=== PATIENT | male | born 1975 | race Caucasian/White ===

== ENCOUNTER 2018-04-19 14:36 | Emergency (ER) | payer BC, OTHER ==
[~2018-04-19] VITALS: Ht 182.9 cm; Wt 113.4 kg
[~2018-04-19 14:36] MED LIST: CYCL5TAB PO; HYDR-1179 PO
--- NOTE | 2018-04-19 15:02 | PHYS DOC ---
Past History Past Medical History: Hypertension Past Surgical History: Other (spinal surgery) Smoking: Chew Alcohol Use: None Drug Use: None Adult General Chief Complaint Chief Complaint: HAND PROBLEM HPI HPI Patient is a 43 year old male who presents with right hand small finger injury. Patient was changing a tire when the wrench broke striking his ulnar aspect of the small finger. There is pain and swelling. Increased pain with movement. No home medicines been taken. No numbness or tingling. There is a small cut. Bleeding has been controlled with pressure. Patient reports his last tetanus vaccine was greater than 5 years ago. He is right-hand dominant. Pain is moderate in intensity. This happened approximately 2 hours prior to arrival.[] Review of Systems Review of Systems Constitutional: Denies fever or chills [] Eyes: Denies change in visual acuity, redness, or eye pain [] HENT: Denies nasal congestion or sore throat [] Respiratory: Denies cough or shortness of breath [] Cardiovascular: No chest pain or palpitations[] GI: Denies abdominal pain, nausea, vomiting, bloody stools or diarrhea [] : Denies dysuria or hematuria [] Musculoskeletal: Denies back pain, see history of present illness[] Integument: Denies rash or skin lesions [] Neurologic: Denies headache, focal weakness or sensory changes [] Endocrine: Denies polyuria or polydipsia [] All other systems were reviewed and found to be within normal limits, except as documented in this note. Allergies Allergies Allergies Coded Allergies Type Severity Reaction Last Updated Verified No Known Drug Allergies 01/09/16 No Physical Exam Physical Exam Constitutional: Well developed, well nourished, no acute distress, non-toxic appearance. [] HENT: Normocephalic, atraumatic, bilateral external ears normal, oropharynx moist, no oral exudates, nose normal. [] Eyes: PERRLA, EOMI, conjunctiva normal, no discharge. [] Neck: Normal range of motion, no tenderness, supple, no stridor. [] Cardiovascular:Heart rate regular rhythm, no murmur [] Lungs & Thorax: Bilateral breath sounds clear to auscultation [] Abdomen: Not evaluated[] Skin: Warm, dry, no erythema, no rash. [] Back: No tenderness, no CVA tenderness. [] Extremities: Tenderness diffusely of the right small finger. There is an abrasion at about the level of the PIP joint, ulnar aspect. FDS, FDP, and extensor mechanisms are intact. Patient is distal neurovascularly intact. R OM of the small finger is decreased secondary to pain, no cyanosis, no clubbing, ROM of other extremities is intact, no edema. [] Neurologic: Alert and oriented X 3, normal motor function, normal sensory function, no focal deficits noted. [] Psychologic: Affect normal, judgement normal, mood normal. [] Current Patient Data Vital Signs Vital Signs Date Time Temp Pulse Resp B/P (MAP) Pulse Ox O2 Delivery O2 Flow Rate FiO2 04/19/18 14:51 98.1 83 20 98 EKG EKG [] Radiology/Procedures Radiology/Procedures THREE VIEWS RIGHT FINGER Clinical History: 5th digit injury while changing tire, sd slipped and smashed finger Technique: AP view of the hand, as well as lateral and oblique collimated views of the little finger were obtained. Comparison: None. Findings: There is no acute fracture or dislocation. There is no radiopaque foreign body. There is soft tissue swelling of the fifth finger. Joint spaces are maintained. IMPRESSION: No acute fracture.[] Course & Med Decision Making Course & Med Decision Making Pertinent Labs and Imaging studies reviewed. (See chart for details) ED course: Patient arrived, was placed in bed, in tolerate exam well. He initially deferred pain medication. Patient had the x-rays taken with any complications. Patient cleaned his wound in the emergency department with soap and water. No suturable wound was identified. Pain medication was again offered and patient elected to take Tylenol prior to having a splint and bandaging applied. Patient was informed of the imaging results, voiced understanding. All questions were answered. Patient was discharged in the emergency department in improved condition, and was distally neurovascularly intact after the splint was applied. Medical decision making: There does not appear to be a fracture, dislocation, significant ligamentous injury nor tendinous injury. No evidence of neuro or vascular compromise.[] Dragon Disclaimer Dragon Disclaimer This electronic medical record was generated, in whole or in part, using a voice recognition dictation system. Departure Departure: Impression: Primary Impression: Contusion Additional Impression: Abrasion Disposition: 01 HOME, SELF-CARE Condition: GOOD Referrals: ZAHRA HICKS (PCP) Follow-up with your regular doctor in 2 days. Patient Instructions: Abrasions, Cast or Splint Care, Hand Contusion Additional Instructions: Keep the wound clean and dry. Wear the splint to help with immobilization which helps with pain management. Follow-up with your regular doctor in 2 days. Return to the ER if worsening pain, weakness, numbness, or any other concerns. Scripts Meloxicam (MELOXICAM) 7.5 Mg Tablet 7.5 MG PO DAILY for PAIN, #20 TAB Prov: DAVID LANDAVERDE DO 04/19/18 Problem Qualifiers Primary Impression: Contusion Encounter type: initial encounter Contusion area: finger Finger: little finger Damage to nail status: without damage Laterality: right Qualified Codes: S60.051A - Contusion of right little finger without damage to nail, initial encounter DAVID LANDAVERDE DO Apr 19, 2018 15:02
--- NOTE | 2018-04-19 15:18 | RAD ---
THREE VIEWS RIGHT FINGER Clinical History: 5th digit injury while changing tire, sd slipped and smashed finger Technique: AP view of the hand, as well as lateral and oblique collimated views of the little finger were obtained. Comparison: None. Findings: There is no acute fracture or dislocation. There is no radiopaque foreign body. There is soft tissue swelling of the fifth finger. Joint spaces are maintained. IMPRESSION: No acute fracture. Electronically signed by: Navin Patrick MD (04/19/2018 3:13 PM) [id number]
[2018-04-19] MEDS ORDERED: DIPHTH,PERTUSS(ACELL),TET TOX 0.5 ML DISP.SYRIN. VAX IM ONE (15:25)
[2018-04-19] MEDS ORDERED: ACETAMINOPHEN 500 MG TABLET PO ONE (15:30)
[2018-04-19] MEDS ORDERED: MELO7.5T29 PO (15:34)
[2018-04-19 15:40] VITALS: BP 157/98
== END 2018-04-19 15:40 | disposition home or self-care (01) ==
LOC: ER 14:36
DX: S60.051A Contusion of right little finger without damage to nail, initial encounter (principal); I10 Essential (primary) hypertension; F17.220 Nicotine dependence, chewing tobacco, uncomplicated; W22.8XXA Striking against or struck by other objects, initial encounter; Y93.89 Activity, other specified; Y92.89 Other specified places as the place of occurrence of the external cause; Y99.8 Other external cause status
CPT/HCPCS: 29125; 73140; 90471; 90715; 99283-25

== ENCOUNTER 2018-04-22 00:45 | Emergency (ER) | payer BC, OTHER ==
[~2018-04-22] VITALS: Ht 182.9 cm; Wt 113.4 kg
[~2018-04-22 00:45] MED LIST changes: +MELO7.5T29 PO
--- NOTE | 2018-04-22 00:49 | ED.ADGEN ---
Past History Past Medical History: Hypertension Past Surgical History: Other Smoking: Chew Alcohol Use: None Drug Use: None Adult General Chief Complaint Chief Complaint ".. I wanted a reckeck on this Rt. little finger.. I hurt it on ..I was taking tire off my PEREZ 150 and it collapsed... and I had a crush injury. It is more purple tonight.. and it forever before I can follow up with my primary..." [facility] HPI Patient is a 43 year old male who presents with above hx and follow up crush injury to right little finger. Reviewed x-rays on 04/19/18. No fx noted. Edema. Pt. currently in splint. Still limited ROM due to pain and edema. Pt.is Rt. handed. Patient distal sensation intact. Patient worried about the increased ecchymosis since time of injury. No recent travel. No specific ill contacts. Patient works in [employer]. Reviewed prior ED record. Review of Systems Review of Systems Constitutional: Denies fever or chills [] Eyes: Denies change in visual acuity, redness, or eye pain [] HENT: Denies nasal congestion or sore throat [] Respiratory: Denies cough or shortness of breath [] Cardiovascular: No additional information not addressed in HPI [] GI: Denies abdominal pain, nausea, vomiting, bloody stools or diarrhea [] : Denies dysuria or hematuria [] Musculoskeletal: Denies back pain or joint pain []complaints of left little or fifth finger injury Integument: Denies rash or skin lesions [] Neurologic: Denies headache, focal weakness or sensory changes [] Endocrine: Denies polyuria or polydipsia [] All other systems were reviewed and found to be within normal limits, except as documented in this note. Family History Family History Noncontributory Current Medications Current Medications See nursing for home meds Allergies Allergies Allergies Coded Allergies Type Severity Reaction Last Updated Verified No Known Drug Allergies 01/09/16 No Physical Exam Physical Exam Constitutional: Well developed, well nourished, no acute distress, non-toxic appearance. [] HENT: Normocephalic, atraumatic, bilateral external ears normal, oropharynx moist, no oral exudates, nose normal. [] Eyes: PERRLA, EOMI, conjunctiva normal, no discharge. [] Neck: Normal range of motion, no tenderness, supple, no stridor. [] Cardiovascular:Heart rate regular rhythm, no murmur [] Lungs & Thorax: Bilateral breath sounds clear to auscultation [] Abdomen: Bowel sounds normal, soft, no tenderness, no masses, no pulsatile masses. [] Skin: Warm, dry, no erythema, no rash. [] Back: No tenderness, no CVA tenderness. [] Extremities: No tenderness, no cyanosis, no clubbing, ROM intact, no edema. [] Except findings in left fifth finger Neurologic: Alert and oriented X 3, normal motor function, normal sensory function, no focal deficits noted. [] Psychologic: Affect anxious, judgement normal, mood normal. [] Current Patient Data Vital Signs Vital Signs Date Time Temp Pulse Resp B/P (MAP) Pulse Ox O2 Delivery O2 Flow Rate FiO2 04/22/18 01:00 98.5 84 16 98 EKG EKG [] Radiology/Procedures Radiology/Procedures Reviewed prior x-rays[] Course & Med Decision Making Course & Med Decision Making Pertinent Labs and Imaging studies reviewed. (See chart for details). Tylenol and ibuprofen for pain. Ice packs as needed. Wear splint. Follow-up primary care. May need orthopedic follow-up. For marked pain may have Vicoprofen up 4 times a day. A need repeat x-ray in 2 weeks to see if there is a callus formation for undiagnosed fracture. [] Final Impression Final Impression 1. Soft Tissue Injury[]-history of crush injury- Rt 5th finger Dragon Disclaimer Dragon Disclaimer This electronic medical record was generated, in whole or in part, using a voice recognition dictation system. Dragon Disclaimer This chart was dictated in whole or in part using Voice Recognition software in a busy, high-work load, and often noisy Emergency Department environment. It may contain unintended and wholly unrecognized errors or omissions. Discharge Summary Visit Information Final Diagnosis Problems Medical Problems: (1) Finger contusion Status: Acute Brief Hospital Course Allergies Allergies Coded Allergies Type Severity Reaction Last Updated Verified No Known Drug Allergies 01/09/16 No Vital Signs Vital Signs Date Time Temp Pulse Resp B/P (MAP) Pulse Ox O2 Delivery O2 Flow Rate FiO2 04/22/18 01:00 98.5 84 16 98 Brief Hospital Course Mr. Parikh is a 43 old male who presented with hx crush injury . Discharge Information Condition at Discharge: Stable Disposition/Orders: D/C to Home Dischare Medications Active Scripts Active Hydrocodone-Ibuprofen 7.5-200 (Hydrocodone/Ibuprofen) 1 Each Tablet 1 Tab PO PRN Q6HRS PRN Meloxicam 7.5 Mg Tablet 7.5 Mg PO DAILY Cyclobenzaprine Hcl 5 Mg Tablet 5 Mg PO TID PRN PRN Hydrocodone-Ibuprofen 7.5-200 (Hydrocodone/Ibuprofen) 1 Each Tablet 1 Tab PO PRN Q6HRS PRN GREGG LAZO MD Apr 22, 2018 00:49
[2018-04-22 01:00] VITALS: BP 157/98
[2018-04-22] MEDS ORDERED: HYDR-1179 PO (01:08)
== END 2018-04-22 01:21 | disposition home or self-care (01) ==
LOC: ER 00:45
DX: S60.051D Contusion of right little finger without damage to nail, subsequent encounter (principal); I10 Essential (primary) hypertension; F17.220 Nicotine dependence, chewing tobacco, uncomplicated; W23.0XXD Caught, crushed, jammed, or pinched between moving objects, subsequent encounter
CPT/HCPCS: 99283

== ENCOUNTER 2019-01-09 08:30 | Emergency (ER) | payer BC ==
[~2019-01-09] VITALS: Ht 182.9 cm; Wt 115.2 kg
[2019-01-09] MEDS ORDERED: IV NORMAL SALINE 1,000ML 1,000 ML IV SCH (08:39)
[2019-01-09] MEDS ORDERED: ONDANSETRON PF 4 MG/2 ML VIAL. IVP ONE (09:00)
[2019-01-09 09:06] LABS: BASO # 0.1 x10^3/uL (0.0-0.2); BASO % 1 % (0-3); EOS # 0.2 x10^3/uL (0.0-0.7); EOS % 2 % (0-3); HEMOGLOBIN 17.3 g/dL (13.0-17.5); LYMPH # 1.1 x10^3/uL (1.0-4.8); LYMPH % 7 % (24-48); MEAN CORPUSCULAR HEMOGLOBIN 30 pg (25-35); MEAN CORPUSCULAR HGB CONC 34 g/dL (31-37); MEAN CORPUSCULAR VOLUME 87 fL (79-100); MONO % 6 % (0-9); NEUT # 12.8 x10^3uL (1.8-7.7); NEUT % 84 % (31-73); PLATELET COUNT 246 x10^3/uL (140-400); RED BLOOD COUNT 5.86 x10^6/uL (4.30-5.70); RED CELL DISTRIBUTION WIDTH 13.8 % (11.5-14.5); WHITE BLOOD COUNT 15.3 x10^3/uL (4.0-11.0)
--- NOTE | 2019-01-09 09:13 | PHYS DOC ---
Past History Past Medical History: Hypertension Past Surgical History: Other Additional Past Surgical Histo: spinal fusion Smoking: Chew Alcohol Use: None Drug Use: None Adult General Chief Complaint Chief Complaint: ABDOMINAL PAIN HPI HPI Patient is a 43-year-old male who presents with complaint right upper abdominal pain with nausea, vomiting and diarrhea that started a few days ago. Patient indicates that pain had gotten really severe last night and had kept him up throughout the night. He states that it had been a 9 to a 10 out of 10 throughout the night but currently is a 6 out of 10. He indicates that his last episode of vomiting was yesterday. He does indicate that he is having difficulty with keeping anything down. Patient states that he was told by his primary care doctor that he has gallbladder disease but has not seen a surgeon. He states that nothing is improving his pain.[] Review of Systems Review of Systems Constitutional: Denies fever or chills [] Respiratory: Denies cough or shortness of breath [] Cardiovascular: No additional information not addressed in HPI [] GI: Complains of right upper quadrant abdominal pain with nausea, vomiting and diarrhea [] Musculoskeletal: Admits to chronic back pain [] Integument: Denies rash or skin lesions [] Neurologic: Denies headache, focal weakness or sensory changes [] All other systems were reviewed and found to be within normal limits, except as documented in this note. Current Medications Current Medications Current Medications Medications (Trade) Dose Ordered Sig/[facility] Start Time Stop Time Status Last Admin Dose Admin Fentanyl Citrate (Fentanyl 2ml Vial) 50 mcg PRN Q15MIN PRN 01/09/19 08:45 01/10/19 08:44 01/09/19 08:58 50 MCG Ondansetron HCl (Zofran) 4 mg 1X ONCE 01/09/19 09:00 01/09/19 09:01 DC 01/09/19 08:59 4 MG Sodium Chloride 1,000 ml @ 1,000 mls/hr Q1H 01/09/19 08:39 01/09/19 09:38 01/09/19 08:55 1,000 MLS/HR Allergies Allergies Allergies Coded Allergies Type Severity Reaction Last Updated Verified No Known Drug Allergies 01/09/19 No Physical Exam Physical Exam Constitutional: Well developed, well nourished, no acute distress, non-toxic appearance. [] HENT: Normocephalic, atraumatic, bilateral external ears normal, oropharynx moist, no oral exudates, nose normal. [] Eyes: PERRLA, EOMI, conjunctiva normal, no discharge. [] Neck: Normal range of motion, no tenderness, supple, no stridor. [] Cardiovascular: Tachycardic rate with regular rhythm[] Lungs & Thorax: Bilateral breath sounds clear to auscultation [] Abdomen: Bowel sounds normal, soft, with moderate right upper quadrant tenderness. [] Skin: Warm, dry, no erythema, no rash. [] Extremities: No tenderness, no cyanosis, no clubbing, ROM intact, no edema. [] Neurologic: Alert and oriented X 3, no focal deficits noted. [] Current Patient Data Vital Signs Vital Signs Date Time Temp Pulse Resp B/P (MAP) Pulse Ox O2 Delivery O2 Flow Rate FiO2 01/09/19 08:58 16 94 Room Air 01/09/19 08:38 98.6 107 EKG EKG [] Radiology/Procedures Radiology/Procedures [] Impressions: CT ABD PELV W/ IV CONTRST ONLY Indication: Abdominal pain. Exposure: One or more of the following individualized dose reduction techniques were utilized for this examination: 1. Automated exposure control 2. Adjustment of the mA and/or kV according to patient size 3. Use of iterative reconstruction technique. Technique: Intravenous contrast was given. No oral contrast per request. Mild patchy densities in lung bases, most likely atelectasis. Liver is mildly enlarged and slightly hypodense compatible with steatosis. Spleen is borderline enlarged at 12 cm. Pancreas unremarkable. Adrenals unremarkable. Kidneys demonstrate symmetric enhancement. Multiple very small nonobstructive left renal calculi are identified. No hydronephrosis. Multiple small hypodense lesions are seen in both kidneys. Largest in the right kidney measures 18 mm and 8 Hounsfield units, most likely a cyst. Others are too small to characterize but could also represent cysts. No calcified gallstone. Aorta is nonaneurysmal. No significant lymph node enlargement. Generalized mild distention of small bowel loops. This extends to the distal ileum where there is a more normal caliber at the terminal ileum. No signs of acute colitis. Fluid and gas within the colon. No evidence of colonic wall thickening or pericolonic fatty stranding. Appendix appears normal. No evidence of pneumoperitoneum or ascites. Urinary bladder unremarkable. Postsurgical changes of the lower spine with fusion at L4-L5. No aggressive bone destruction. IMPRESSION: 1. Distention of small bowel loops through the distal ileum, most concerning for a mild distal small bowel obstruction, although ileus could also be considered. 2. Multiple small nonobstructive left renal calculi. 3. Mild hepatomegaly with steatosis. 4. Small hypodense lesions within both kidneys, most are too small to characterize, but could represent cysts. Electronically signed by: Kyrie Phipps MD (01/09/2019 11:04 AM) [id number] DICTATED AND SIGNED BY: KYRIE PHIPPS MD DATE: 01/09/19 1108 CC: JOSELUIS STEVENS Jr. DO; LILI MESA MD ~ Course & Med Decision Making Course & Med Decision Making Pertinent Labs and Imaging studies reviewed. (See chart for details) Findings of workup have been reviewed with patient and patient does again confirm that his last bowel movement was about an hour before he arrived to the emergency room. In light of the diarrhea that the patient has been having, I do not feel that interpretation by radiologist of small bowel obstruction versus ileus is likely. I did discuss option of overnight admission with further evaluation and management of patient; however, patient indicates that he would prefer to be discharged home. He does indicate that he is feeling much better at this time. I have recommended that patient return to the emergency room if he has acute worsening of symptoms or if bowel movements stop and he continues to have vomiting. Dragon Disclaimer Dragon Disclaimer This electronic medical record was generated, in whole or in part, using a voice recognition dictation system. Departure Departure: Impression: Primary Impression: Enteritis Disposition: 01 HOME, SELF-CARE Condition: STABLE Referrals: LILI MESA MD (PCP) Patient Instructions: Colitis, Form - Excuse from Work, School, or Physical Activity, Viral Gastroenteritis Scripts Ondansetron Hcl (ZOFRAN) 4 Mg Tablet 4 MG PO Q6HRS PRN for NAUSEA, #12 TAB Prov: JOSELUIS STEVENS Jr. DO 01/09/19 Hydrocodone/Acetaminophen (Hydrocodone-Acetamin 7.5-325) 1 Each Tablet 1 EACH PO Q6HRS PRN for PAIN, #12 TAB Prov: JOSELUIS STEVENS Jr. DO 01/09/19 Ciprofloxacin Hcl (CIPRO) 500 Mg Tablet 1 TAB PO BID for infection for 10 Days, #20 TAB 0 Refills Prov: JOSELUIS STEVENS Jr. DO 01/09/19 Metronidazole (METRONIDAZOLE) 500 Mg Tablet 1 TAB PO TID for infection for 10 Days, #30 TAB 0 Refills Prov: JOSELUIS STEVENS Jr. DO 01/09/19 JOSELUIS STEVENS Jr. DO Jan 09, 2019 09:13
[2019-01-09 09:21] LABS: ALBUMIN 4.2 g/dL (3.4-5.0); ALBUMIN/GLOBULIN RATIO 1.1 (1.0-1.7); CREATININE 1.1 mg/dL (0.7-1.3); GFR 72.4; POTASSIUM 3.6 mmol/L (3.5-5.1); TOTAL BILIRUBIN 0.8 mg/dL (0.2-1.0); TOTAL PROTEIN 8.2 g/dL (6.4-8.2)
[2019-01-09 09:26] LABS: % ATYL 1 % (0-0); % BANDS 4 % (0-9); % LYMPHS 9 % (24-48); % MONOS 2 % (0-10); % SEGS 84 % (35-66)
[2019-01-09 09:27] LABS: PLT ESTIMATE ADEQUATE (ADEQUATE)
--- NOTE | 2019-01-09 09:47 | RAD ---
Examination: ABDOMEN LTD History: Right upper quadrant pain Comparison/Correlation: None Findings: Gallbladder is normal with no cholelithiasis or findings to suggest cholecystitis. Liver length is 19.6 cm. Common bile that measures 0.3 cm diameter. Fatty infiltration of the liver diffusely is present. No intrahepatic biliary dilatation. Portal venous flow is normal. Right kidney measures 13 cm longitudinal. No right hydronephrosis. Proximal pancreas is normal. Distal pancreas is obscured by bowel gas. No right upper quadrant ascites. Inferior vena cava is poorly visualized. Impression: Fatty infiltration of the liver. Electronically signed by: Ky Dodson MD (01/09/2019 9:44 AM) [facility]
[2019-01-09] MEDS ORDERED: IOHEXOL 300 MG/ML 75 ML VIAL. IV ONE (10:15)
[2019-01-09 10:29] LABS: BILIRUBIN,URINE NEG (NEG); CLARITY,URINE HAZY; COLOR,URINE AMBER; GLUCOSE,URINE NEG (NEG)
[2019-01-09 10:30] LABS: AMORPHOUS SEDIMENT,UR PRESENT /HPF; BACTERIA,URINE FEW /HPF (0-FEW); GRANULAR CASTS,URINE OCC /HPF; HYALINE CASTS, URINE OCC /HPF; NITRITE,URINE NEG (NEG); SQUAMOUS EPITHELIAL CELL,UR OCC /LPF; UROBILINOGEN,URINE 0.2 mg/dL (0.2 mg/dL)
--- NOTE | 2019-01-09 11:07 | RAD ---
CT ABD PELV W/ IV CONTRST ONLY Indication: Abdominal pain. Exposure: One or more of the following individualized dose reduction techniques were utilized for this examination: 1. Automated exposure control 2. Adjustment of the mA and/or kV according to patient size 3. Use of iterative reconstruction technique. Technique: Intravenous contrast was given. No oral contrast per request. Mild patchy densities in lung bases, most likely atelectasis. Liver is mildly enlarged and slightly hypodense compatible with steatosis. Spleen is borderline enlarged at 12 cm. Pancreas unremarkable. Adrenals unremarkable. Kidneys demonstrate symmetric enhancement. Multiple very small nonobstructive left renal calculi are identified. No hydronephrosis. Multiple small hypodense lesions are seen in both kidneys. Largest in the right kidney measures 18 mm and 8 Hounsfield units, most likely a cyst. Others are too small to characterize but could also represent cysts. No calcified gallstone. Aorta is nonaneurysmal. No significant lymph node enlargement. Generalized mild distention of small bowel loops. This extends to the distal ileum where there is a more normal caliber at the terminal ileum. No signs of acute colitis. Fluid and gas within the colon. No evidence of colonic wall thickening or pericolonic fatty stranding. Appendix appears normal. No evidence of pneumoperitoneum or ascites. Urinary bladder unremarkable. Postsurgical changes of the lower spine with fusion at L4-L5. No aggressive bone destruction. IMPRESSION: 1. Distention of small bowel loops through the distal ileum, most concerning for a mild distal small bowel obstruction, although ileus could also be considered. 2. Multiple small nonobstructive left renal calculi. 3. Mild hepatomegaly with steatosis. 4. Small hypodense lesions within both kidneys, most are too small to characterize, but could represent cysts. Electronically signed by: Pietro Phipps MD (01/09/2019 11:04 AM) [id number]
[2019-01-09] MEDS ORDERED: HYDR-2763 PO (11:28)
[2019-01-09] MEDS ORDERED: METR-34 PO (11:28)
[2019-01-09] MEDS ORDERED: ONDA4TAB7 PO (11:28)
[2019-01-09] MEDS ORDERED: CIPR500T94 PO (11:28)
[2019-01-09 12:15] VITALS: BP 154/89
== END 2019-01-09 12:15 | disposition home or self-care (01) ==
LOC: ER 08:30
DX: K52.9 Noninfective gastroenteritis and colitis, unspecified (principal); I10 Essential (primary) hypertension; F17.220 Nicotine dependence, chewing tobacco, uncomplicated
CPT/HCPCS: 36415; 74177; 76705; 80053; 81001; 83690; 85007; 85025; 96361; 96374; 96375; 99285; J2405; J3010; Q9967; J7030

== ENCOUNTER 2019-01-10 19:12 | Emergency (ER) | payer BC ==
[~2019-01-10] VITALS: Ht 182.9 cm; Wt 113.4 kg
[~2019-01-10 19:12] MED LIST changes: +CIPR500T94 PO; +HYDR-2763 PO; +METR-34 PO; +ONDA4TAB7 PO
[2019-01-10] MEDS ORDERED: IV NORMAL SALINE 1,000ML 1,000 ML IV ONE (20:00)
[2019-01-10] MEDS ORDERED: ONDANSETRON PF 4 MG/2 ML VIAL. IVP ONE (20:00)
[2019-01-10 20:11] LABS: BASO # 0.1 x10^3/uL (0.0-0.2); BASO % 1 % (0-3); EOS # 0.6 x10^3/uL (0.0-0.7); EOS % 7 % (0-3); HEMATOCRIT 42.6 % (39.0-53.0); HEMOGLOBIN 14.6 g/dL (13.0-17.5); LYMPH # 1.1 x10^3/uL (1.0-4.8); LYMPH % 13 % (24-48); MEAN CORPUSCULAR HEMOGLOBIN 30 pg (25-35); MEAN CORPUSCULAR HGB CONC 34 g/dL (31-37); MEAN CORPUSCULAR VOLUME 87 fL (79-100); MONO # 0.6 x10^3/uL (0.0-1.1); MONO % 7 % (0-9); NEUT # 6.4 x10^3uL (1.8-7.7); NEUT % 73 % (31-73); PLATELET COUNT 193 x10^3/uL (140-400); RED CELL DISTRIBUTION WIDTH 13.3 % (11.5-14.5); WHITE BLOOD COUNT 8.7 x10^3/uL (4.0-11.0)
[2019-01-10 20:25] LABS: ALBUMIN 3.6 g/dL (3.4-5.0); ALBUMIN/GLOBULIN RATIO 1.2 (1.0-1.7); CALCIUM 8.4 mg/dL (8.5-10.1); GFR 80.8; POTASSIUM 3.5 mmol/L (3.5-5.1); TOTAL BILIRUBIN 0.5 mg/dL (0.2-1.0); TOTAL PROTEIN 6.5 g/dL (6.4-8.2)
[2019-01-10 22:15] VITALS: BP 135/84
--- NOTE | 2019-01-10 22:20 | ED.ADGEN ---
Past History Past Medical History: Hypertension Past Surgical History: Other Additional Past Surgical Histo: spinal fusion Smoking: Chew Alcohol Use: None Drug Use: None Adult General Chief Complaint Chief Complaint Abdominal pain HPI HPI Patient is a 43-year-old male who is evaluated in this emergency department yesterday for nausea vomiting and abdominal pain who presents with recurrent continued vomiting and diarrhea. Patient's was diagnosed with an early small bowel obstruction/possible ileus and was prescribed nausea medication. Reports vomiting after eating pizza earlier today and drinking water prior to ED arrival. Reports diffuse migratory abdominal pain. No fevers chills, sweats. Denies dizziness lightheadedness. No bloody stools dark tarry stools. No other acute symptoms or complaints. Previous lumbar surgery with anterior abdominal approach. Review of Systems Review of Systems Review symptoms as per history of present illness. All other review symptoms are negative. All other systems were reviewed and found to be within normal limits, except as documented in this note. Current Medications Current Medications Current Medications Medications (Trade) Dose Ordered Sig/Jim Start Time Stop Time Status Last Admin Dose Admin Ondansetron HCl (Zofran) 8 mg 1X ONCE 01/10/19 20:00 01/10/19 20:01 DC 01/10/19 20:41 8 MG Sodium Chloride 1,000 ml @ 1,000 mls/hr 1X ONCE 01/10/19 20:00 01/10/19 20:59 DC 01/10/19 20:00 1,000 MLS/HR Allergies Allergies Allergies Coded Allergies Type Severity Reaction Last Updated Verified No Known Drug Allergies 01/09/19 No Physical Exam Physical Exam Constitutional: Well developed, well nourished, no acute distress, non-toxic appearance. [] HENT: Normocephalic, atraumatic, bilateral external ears normal, oropharynx moist, no oral exudates, nose normal. [] Eyes: PERRLA, EOMI, conjunctiva normal, no discharge. [] Neck: Normal range of motion, no tenderness, supple, no stridor. [] Cardiovascular:Heart rate regular rhythm, no murmur [] Lungs & Thorax: Bilateral breath sounds clear to auscultation [] Abdomen: Bowel sounds normal, soft, epigastric pain, tenderness.. [] Skin: Warm, dry, no erythema, no rash. [] Back: No tenderness, no CVA tenderness. [] Extremities: No tenderness, no cyanosis, no clubbing, ROM intact, no edema. [] Neurologic: Alert and oriented X 3, normal motor function, normal sensory function, no focal deficits noted. [] Psychologic: Affect normal, judgement normal, mood normal. [] Current Patient Data Vital Signs Vital Signs Date Time Temp Pulse Resp B/P (MAP) Pulse Ox O2 Delivery O2 Flow Rate FiO2 01/10/19 21:15 87 18 136/88 (104) 97 Room Air 01/10/19 19:15 97.7 Lab Results Laboratory Tests Test 01/10/19 19:50 White Blood Count 8.7 x10^3/uL (4.0-11.0) Red Blood Count 4.90 x10^6/uL (4.30-5.70) Hemoglobin 14.6 g/dL (13.0-17.5) Hematocrit 42.6 % (39.0-53.0) Mean Corpuscular Volume 87 fL (79-100) Mean Corpuscular Hemoglobin 30 pg (25-35) Mean Corpuscular Hemoglobin Concent 34 g/dL (31-37) Red Cell Distribution Width 13.3 % (11.5-14.5) Platelet Count 193 x10^3/uL (140-400) Neutrophils (%) (Auto) 73 % (31-73) Lymphocytes (%) (Auto) 13 % (24-48) L Monocytes (%) (Auto) 7 % (0-9) Eosinophils (%) (Auto) 7 % (0-3) H Basophils (%) (Auto) 1 % (0-3) Neutrophils # (Auto) 6.4 x10^3uL (1.8-7.7) Lymphocytes # (Auto) 1.1 x10^3/uL (1.0-4.8) Monocytes # (Auto) 0.6 x10^3/uL (0.0-1.1) Eosinophils # (Auto) 0.6 x10^3/uL (0.0-0.7) Basophils # (Auto) 0.1 x10^3/uL (0.0-0.2) Sodium Level 137 mmol/L (136-145) Potassium Level 3.5 mmol/L (3.5-5.1) Chloride Level 101 mmol/L (98-107) Carbon Dioxide Level 28 mmol/L (21-32) Anion Gap 8 (6-14) Blood Urea Nitrogen 16 mg/dL (8-26) Creatinine 1.0 mg/dL (0.7-1.3) Estimated GFR (Cockcroft-Gault) 80.8 BUN/Creatinine Ratio 16 (6-20) Glucose Level 95 mg/dL (70-99) Calcium Level 8.4 mg/dL (8.5-10.1) L Total Bilirubin 0.5 mg/dL (0.2-1.0) Aspartate Amino Transferase (AST) 14 U/L (15-37) L Alanine Aminotransferase (ALT) 24 U/L (16-63) Alkaline Phosphatase 73 U/L (46-116) Total Protein 6.5 g/dL (6.4-8.2) Albumin 3.6 g/dL (3.4-5.0) Albumin/Globulin Ratio 1.2 (1.0-1.7) Lipase 238 U/L (73-393) EKG EKG [] Radiology/Procedures Radiology/Procedures [Abdominal series: No air-fluid levels or free air.] Course & Med Decision Making Course & Med Decision Making Pertinent Labs and Imaging studies reviewed. (See chart for details) [IV fluids, antiemetics given. Patient reports persistent abdominal pain nausea. Dr. Abraham to admit [facility]] Final Impression Final Impression [] Dragon Disclaimer Dragon Disclaimer This electronic medical record was generated, in whole or in part, using a voice recognition dictation system. FRANKLYN BLACKMAN DO Jan 10, 2019 22:20
--- NOTE | 2019-01-10 23:34 | RAD ---
Indication: Shortness of air, nausea and vomiting. TECHNIQUE: PA chest and upright and supine view of the abdomen pelvis COMPARISON: None FINDINGS: Heart is normal in size. Lungs are clear. No pneumothorax or pleural effusion. No subdiaphragmatic lucency to suggest large pneumoperitoneum. Visualized bony thorax within normal limits. No abnormally dilated bowel loops or air-fluid levels. Visualized bones are within normal limits. IMPRESSION: No evidence of high-grade bowel obstruction. Electronically signed by: Fabricio Hutchison DO (01/10/2019 11:31 PM) [facility]
[2019-01-11] MEDS ORDERED: CIPROFLOXACIN 400MG PREMIX 200 ML IV SCH (21:00)
== END 2019-01-10 22:53 | disposition home or self-care (01) ==
LOC: ER 19:12
DX: R11.2 Nausea with vomiting, unspecified (principal); R10.13 Epigastric pain; R19.7 Diarrhea, unspecified; I10 Essential (primary) hypertension; F17.220 Nicotine dependence, chewing tobacco, uncomplicated
CPT/HCPCS: 36415; 74022; 80053; 83690; 85025; 96361; 96374; 99285; J2405; J7030

== ENCOUNTER 2019-06-05 00:11 | Emergency (ER) | payer BC ==
[~2019-06-05] VITALS: Ht 182.9 cm; Wt 115.2 kg
[2019-06-05 00:22] VITALS: BP 165/111
--- NOTE | 2019-06-05 00:49 | PHYS DOC ---
Past History Past Medical History: Hypertension Past Surgical History: Other Additional Past Surgical Histo: spinal fusion Smoking: Chew Additional Smoking Information: chewing tobbacco Alcohol Use: None Drug Use: None Adult General Chief Complaint Chief Complaint: SHORTNESS OF BREATH [facility] HPI 44-year-old male presents with 2-3 week history of cough, shortness of breath, congestion. [facility] and a chest x-ray. They're both negative. The patient still is not feeling well so he decided to come to this emergency room for evaluation. He denies chest pain or diaphoresis. His has some similar symptoms. The patient has no recent travel or other risk factors for COVID 19. He is not a smoker any more, he uses chewing tobacco. He believes he has had intermittent fevers but has not measured them. Review of Systems Review of Systems Constitutional: Fever[] Eyes: Denies change in visual acuity, redness, or eye pain [] HENT: Nasal congestion[] Respiratory: Denies cough or shortness of breath [] Cardiovascular: No additional information not addressed in HPI [] GI: Denies abdominal pain, nausea, vomiting, bloody stools or diarrhea [] : Denies dysuria or hematuria [] Musculoskeletal: Denies back pain or joint pain [] Integument: Denies rash or skin lesions [] Neurologic: Denies headache, focal weakness or sensory changes [] Endocrine: Denies polyuria or polydipsia [] All other systems were reviewed and found to be within normal limits, except as documented in this note. Allergies Allergies Allergies Coded Allergies Type Severity Reaction Last Updated Verified No Known Drug Allergies 01/09/19 No Physical Exam Physical Exam Constitutional: Well developed, well nourished, no acute distress, non-toxic appearance. [] HENT: Normocephalic, atraumatic, bilateral external ears normal, oropharynx moist, no oral exudates, nose congested[] Eyes: PERRLA, EOMI, conjunctiva normal, no discharge. [] Neck: Normal range of motion, no tenderness, supple, no stridor. [] Cardiovascular: Heart rate regular rhythm, no murmur [] Lungs & Thorax: Bilateral breath sounds clear to auscultation [] Abdomen: Bowel sounds normal, soft, no tenderness, no masses, no pulsatile masses. [] Skin: Warm, dry, no erythema, no rash. [] Back: No tenderness, no CVA tenderness. [] Extremities: No tenderness, no cyanosis, no clubbing, ROM intact, no edema. [] Neurologic: Alert and oriented X 3, normal motor function, normal sensory function, no focal deficits noted. [] Psychologic: Affect normal, judgement normal, mood normal. [] Current Patient Data Vital Signs Vital Signs Date Time Temp Pulse Resp B/P (MAP) Pulse Ox O2 Delivery O2 Flow Rate FiO2 06/05/19 00:22 98.2 81 18 165/111 (129) 98 Room Air EKG EKG Sinus rhythm, rate 73, normal axis, no ST elevations or depressions[] Radiology/Procedures Radiology/Procedures [] Impressions: Chest AP portable at 0106: Reason for examination: Short of breath. Comparison is made to previous study dated 01/09/2016. The heart size is normal. Mediastinum is unremarkable. Lung mcdowell are clear. No acute bony abnormalities are evident. IMPRESSION: No acute cardiopulmonary disease evident. Electronically signed by: Lala Pink MD (06/05/2019 1:29 AM) [id number] DICTATED AND SIGNED BY: LALA PINK MD DATE: 06/05/19 0129 CC: FRANKLYN TRISTAN DO; LILI MESA MD ~ Course & Med Decision Making Course & Med Decision Making Pertinent Labs and Imaging studies reviewed. (See chart for details) The patient's labs are unremarkable. Chest x-rays negative for acute findings. His influenza is negative. I believe the patient has bronchitis, likely viral in this will just need to work its way through. I explained to him that this could last up to a few months. He will follow-up with his primary care physician he is stable for discharge at this time. [] Dragon Disclaimer Dragon Disclaimer This electronic medical record was generated, in whole or in part, using a voice recognition dictation system. Departure Departure: Impression: Primary Impression: Bronchitis Disposition: HOME, SELF-CARE Condition: STABLE Referrals: LILI MESA MD (PCP) Patient Instructions: Bronchitis, [id number] FRANKLYN TRISTAN DO Jun 05, 2019 00:49
[2019-06-05 01:08] LABS: BASO # 0.1 x10^3/uL (0.0-0.2); BASO % 1 % (0-3); EOS # 0.2 x10^3/uL (0.0-0.7); EOS % 3 % (0-3); HEMATOCRIT 43.9 % (39.0-53.0); HEMOGLOBIN 14.8 g/dL (13.0-17.5); LYMPH # 2.3 x10^3/uL (1.0-4.8); LYMPH % 33 % (24-48); MEAN CORPUSCULAR HEMOGLOBIN 30 pg (25-35); MEAN CORPUSCULAR HGB CONC 34 g/dL (31-37); MEAN CORPUSCULAR VOLUME 88 fL (79-100); MONO # 0.6 x10^3/uL (0.0-1.1); MONO % 9 % (0-9); NEUT # 3.7 x10^3uL (1.8-7.7); NEUT % 53 % (31-73); PLATELET COUNT 209 x10^3/uL (140-400); RED CELL DISTRIBUTION WIDTH 13.9 % (11.5-14.5); WHITE BLOOD COUNT 6.9 x10^3/uL (4.0-11.0)
[2019-06-05 01:13] LABS: CALCIUM 8.5 mg/dL (8.5-10.1); CREATININE 0.9 mg/dL (0.7-1.3); GFR 90.8; POTASSIUM 3.4 mmol/L (3.5-5.1)
[2019-06-05 01:26] LABS: ALBUMIN 3.7 g/dL (3.4-5.0); ALBUMIN/GLOBULIN RATIO 1.2 (1.0-1.7); TOTAL BILIRUBIN 0.1 mg/dL (0.2-1.0); TOTAL PROTEIN 6.9 g/dL (6.4-8.2)
--- NOTE | 2019-06-05 01:32 | RAD ---
Chest AP portable at 0106: Reason for examination: Short of breath. Comparison is made to previous study dated 01/09/2016. The heart size is normal. Mediastinum is unremarkable. Lung mcdowell are clear. No acute bony abnormalities are evident. IMPRESSION: No acute cardiopulmonary disease evident. Electronically signed by: Lala Dowling MD (06/05/2019 1:29 AM) [id number]
[2019-06-05 01:37] LABS: INFLUENZA A PATIENT NEGATIVE (NEGATIVE); INFLUENZA B PATIENT NEGATIVE (NEGATIVE)
--- NOTE | 2019-06-05 03:05 | EKG ---
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
== END 2019-06-05 02:05 | disposition home or self-care (01) ==
LOC: ER 00:11
DX: J40 Bronchitis, not specified as acute or chronic (principal); I10 Essential (primary) hypertension; F17.220 Nicotine dependence, chewing tobacco, uncomplicated
CPT/HCPCS: 36415; 71045; 80053; 84484; 85025; 87804; 93005; 99285